=== PATIENT | female | born 1950 | race Two or more races ===

== ENCOUNTER 2017-12-16 16:16 | Outpatient (CLI) | payer OTHER | END 2017-12-16 16:21 | disposition home or self-care (01) | LOC: RAD 16:16 → LAB 16:16 → RAD 16:21 | DX: D64.89 Other specified anemias (principal); R07.89 Other chest pain; I10 Essential (primary) hypertension; D68.8 Other specified coagulation defects; D78.89 Other postprocedural complications of the spleen; N39.0 Urinary tract infection, site not specified ==

== ENCOUNTER 2017-12-31 04:55 | Day surgery (SDC) | payer OTHER ==
[2017-12-31] MEDS ORDERED: MACROBID 100 M100 MG PO (10:51)
[2017-12-31] MEDS ORDERED: ULTRACET PO (10:51)
== END 2017-12-31 16:00 | disposition home or self-care (01) ==
LOC: CIR.AMB 04:55
DX: N81.3 Complete uterovaginal prolapse (principal); N39.3 Stress incontinence (female) (male)
CPT/HCPCS: 57120; 57288; 57210; C1771